=== PATIENT | male | born 1975 | race Caucasian/White ===

== ENCOUNTER 2020-11-14 14:11 | Emergency (ER) | payer OTHER ==
[2020-11-14 14:21] VITALS: BP 142/99
--- NOTE | 2020-11-14 14:28 | ED Physician Documentation ---
PD HPI SKIN - Stated complaint Stated Complaint: ARM RASH - Chief complaint Chief Complaint: Wound - History obtained from History obtained from: Patient - Additional information Additional information: 6 weeks of severely itchy rash on the forearms starting on the left and now on both for the last 6 weeks. No other rashes. The itching is keeping him up at night. He is tried hydrocortisone topically without relief. No family or friends with similar rashes. Review of Systems Constitutional: reports: Reviewed and negative Eyes: reports: Reviewed and negative Throat: reports: Reviewed and negative Cardiac: reports: Reviewed and negative Respiratory: reports: Reviewed and negative PD PAST MEDICAL HISTORY - Present Medications Home Medications: Ambulatory Orders Medication Instructions Recorded Confirmed Doxepin [SINEquan] 10 mg PO TID PRN #30 cap 11/14/20 Permethrin 5% Cream [Permethrin 1 applic TOP ONCE #2 gm 11/14/20 Cream] Triamcinolone 0.1% Cream [Kenalog 1 applic TOP BID #75 gm 11/14/20 0.1% Cream] - Allergies Allergies/Adverse Reactions: Allergies Allergy/AdvReac Type Severity Reaction Status Date / Time No Known Drug Allergies Allergy Verified 11/14/20 14:16 PD ED PE NORMAL - Vitals Vital signs reviewed: Yes - General General: Alert and oriented X 3, No acute distress - HEENT HEENT: PERRL, EOMI - Neck Neck: Supple, no meningeal sign, No bony TTP - Extremities Extremities: Other (There is a dermatitis on both forearms, especially antecubital fossa and extensor surface of the forearms. Has the appearance of either dermatitis or potentially scabies although it seems to spare the wrist flexor creases.) - Neuro Neuro: Alert and oriented X 3, Normal speech Results - Vitals Vitals: Vital Signs - 24 hr 11/14/20 14:16 Temperature 36.6 C Heart Rate 99 Respiratory 19 Rate Blood Pressure 142/99 H O2 Saturation 100 Oxygen O2 Source Room air Departure - Departure Disposition: 01 Home, Self Care Clinical Impression: Dermatitis Condition: Good Record reviewed to determine appropriate education?: Yes Instructions: ED Dermatitis Atopic Eczema Prescriptions: Triamcinolone 0.1% Cream [Kenalog 0.1% Cream] 1 applic TOP BID #75 gm Permethrin 5% Cream [Permethrin Cream] 1 applic TOP ONCE #2 gm Doxepin [SINEquan] 10 mg PO TID PRN #30 cap PRN Reason: Itching Comments: Severe rash is not completely clear, some aspects of it though are suggestive of scabies, other is more like an eczematous or allergic reaction. We are trying the treatment for scabies but also giving you something for the itching. Return for worsening symptoms and follow-up with your doctor as scheduled for further evaluation, potential dermatology referral if symptoms are persistent. Do not drink or drive while taking the doxepin as it is slightly sedating.
== END 2020-11-14 14:34 | disposition home or self-care (01) ==
LOC: ED 14:11
DX: L30.9 Dermatitis, unspecified (principal)
CPT/HCPCS: 99282; 99284